=== PATIENT | female | born 1940 | race Caucasian/White ===

== ENCOUNTER 2019-12-03 16:30 | Outpatient (RCR) | payer MEDICARE, SELFPAY ==
[2019-11-17 12:03] VITALS: PULSE 60
--- NOTE | 2019-11-19 07:31 | PCCPR ---
Pt called 11/18, not feeling well with coughing fits; pt plans to return Mon 11/22
--- NOTE | 2019-12-09 09:48 | PCCPR ---
Program is temporarily suspended due to COVID outbreak.
--- NOTE | 2019-12-17 10:50 | PCCPR ---
Spoke with Yashira regarding temporary closure until January 13. Yashira is not doing any structured exercise at home. Informed her that we mailed a home exercise packet to her home as a guide she can use for exercise. We call again in one week.
--- NOTE | 2019-12-23 11:19 | PCCPR ---
Addendum entered by Jocelin Rosenberg RN 12/23/19 11:40: Yashira called back. States she has been having shoulder pain and can barely walk for 10 min. She called her MD and they got her in for an appt. They did an ultrasound and blood work and she states her troponin was elevated. They had her go get another trop drawn this am. They told her she may need another cath. She has been very busy running her to and from dialysis. Isn't able to do much activity due to the shoulder pain and becoming tired quickly. Will follow up with Yashira next week. Original Note: Left message-checking in on patient.
--- NOTE | 2019-12-30 14:28 | PCCPR ---
Check in completed with patient. Patient states she has not been able to do any exercise. She was having increased SOB, shoulder, & leg pain with any activity. She had an appt with MD and they did some testing. They told her she does have some fluid around her heart but nothing major. Did not think she needed any further testing. For the shoulder pain they told her to take nitro as needed. She also has been very busy taking care of her who is on dialysis and also has an infection is his foot. No other questions at this time. Will continue to follow weekly.
--- NOTE | 2020-01-06 13:47 | PCCPR ---
Weekly update call-No questions or concerns at this time.
--- NOTE | 2020-01-28 13:06 | PCCPR ---
Starting Bi-Weekly calls. Left message for patient.
--- NOTE | 2020-02-11 15:23 | PCCPR ---
Called Yashira spoke with her daughter she was on an important call however is still interested in the program. Let us know if she would like to talk with us about questions or concerns. We will call back in apx 2 weeks hopefully with a plan of how we will reopen safely.
--- NOTE | 2020-04-20 09:38 | PCCPR ---
Yashira had potential exposure from her grandson who went to college this week and tested positive. We encouraged her to self quarantine for 14 days before coming back. She is understanding and will return Saturday05/02/2020.
== END 2019-12-03 23:59 | disposition home or self-care (01) ==
LOC: ANHCPREHAB 16:30
PROVIDERS: Visit Provider Internal Medicine Cardiovascular Disease
DX: Z95.5 Presence of coronary angioplasty implant and graft (principal)
CPT/HCPCS: 93798

== ENCOUNTER 2020-04-28 13:24 | Outpatient (CLI) | payer MEDICARE, SELFPAY ==
--- NOTE | ~2020-04-28 | DEXA_ITS ---
Bone Density Report Name: Yashira Mccormack Age: 79 Sex: Female Ethnicity: White Date of : 1940 Indication: postmenopausal; parental hip fracture; height loss; prior fracture; hysterectomy; Referring Provider: PHYSICIAN NOT ON STAFF Study: Bone densitometry was performed. Exam Date: April 28, 2020 Accession number: [id number] Bone Density: Region BMD T-score Z-score Classification AP Spine (L1-L4) 0.827 -2.0 0.5 Osteopenia Femoral Neck (Left) 0.567 -2.5 -0.4 Osteoporosis Total Hip (Left) 0.687 -2.1 -0.2 Osteopenia Total Hip Bilateral Avg 0.700 -2.0 -0.1 Osteopenia Femoral Neck (Right) 0.542 -2.8 -0.6 Osteoporosis Total Hip (Right) 0.713 -1.9 0.0 Osteopenia World Health Organization criteria for BMD impression classify patients as: Normal (T-score at or above -1.0), Osteopenia (T-score between -1.0 and -2.5), or Osteoporosis (T-score at or below -2.5). 10-year Fracture Risk: FRAX not reported because: Some T-score for Spine Total or Hip Total or Femoral Neck at or below -2.5 Treated for osteoporosis Clinical Information Provided by Patient: Has had a low trauma fracture Parent has had a hip fracture Is being treated for osteoporosis Has used the following medications: Vitamin D Has the following medical conditions: Hysterectomy Patient maximum height was 67 Menopause Age: 42 No regular weight bearing exercise Drinks caffeinated beverages Onset of menses at age 16 Number of children 5 Impression: The patient has established osteoporosis, based on the Right Femoral Neck T-score and the existence of a prior fracture. The patient has risk factors, including: parental hip fracture, previous fracture. Discussion: It is important to ask patients whether they are taking their medications and to encourage continued and appropriate compliance with their osteoporosis therapies to reduce fracture risk. It is also important to review their risk factors and encourage appropriate calcium and vitamin D intakes, exercise, fall prevention and other lifestyle measures. Follow-Up: Consider a repeat BMD and Vertebral Fracture Assessment (VFA) exam in 2 years or sooner if medically necessary, to reassess this patient's status. Reported by: BENTLEY on 04/28/2020 2:03:00 PM. Reviewed, dictated and finalized at location ADorothy AGGARWAL
== END 2020-04-28 13:25 | disposition home or self-care (01) ==
LOC: ANHIMG 13:29
DX: Z78.0 Asymptomatic menopausal state (principal); M85.88 Other specified disorders of bone density and structure, other site; M81.0 Age-related osteoporosis without current pathological fracture; M85.852 Other specified disorders of bone density and structure, left thigh; M85.851 Other specified disorders of bone density and structure, right thigh
CPT/HCPCS: 77080

== ENCOUNTER 2020-06-08 10:30 | Outpatient (RCR) | payer MEDICARE, SELFPAY | END 2020-06-08 15:00 | disposition home or self-care (01) | LOC: ANHCPREHAB 10:30 | PROVIDERS: Visit Provider Internal Medicine Cardiovascular Disease | DX: Z95.5 Presence of coronary angioplasty implant and graft (principal) | CPT/HCPCS: 93798 ==

== ENCOUNTER 2021-12-23 15:25 | Emergency (ER) | payer MEDICARE, SELFPAY ==
--- NOTE | ~2021-12-23 | XR_ITS ---
EXAM: XR abdomen/kub 1V, XR lumbar spine 2-3V HISTORY: Lt sided LOW BACK PAIN; no injury; recent C-dif infection COMPARISON: None available FINDINGS: Lumbar spine: 5 nonrib-bearing lumbar-type vertebral bodies. Pedicles intact. Exaggerated lumbar lord osis. 3 mm retrolisthesis of L1 on L2 with mild disc space narrowing and marginal osteophytosis. Mode rate disc space narrowing with mild marginal osteophytosis and vacuum phenomenon at L5-S1. Mild multi level facet arthropathy. Abdomen: Atherosclerotic aortic calcifications, without evident aneurysm. Mild hepatomegaly. Normal b owel gas pattern. Cholecystectomy clips. Degenerative changes in the bilateral SI joints and hips as well as the pubic symphysis. IMPRESSION: No obstruction or ileus. No acute fracture or traumatic malalignment detected in the lumbar spine. Gr sandee 1 retrolisthesis of L1 on L2, with mild associated degenerative disc disease. Severe degenerative disc disease at L5-S1. Reviewed, dictated and finalized at location K. IMPRESSION: No obstruction or ileus. No acute fracture or traumatic malalignment detected i n the lumbar spine. Grade 1 retrolisthesis of L1 on L2, with mild associated de generative disc disease. Severe degenerative disc disease at L5-S1.
[2021-12-23 15:41] VITALS: BP 94/67; PULSE 73; RESP 12; TEMP 36.8; O2SAT 100
--- NOTE | 2021-12-23 16:34 | ED.GENADULT ---
HPI - General Adult General Chief complaint: Back Pain/Injury Stated complaint: BACK PAIN Source: patient Mode of arrival: ambulatory Limitations: no limitations History of Present Illness HPI narrative: Patient presents for evaluation of left lower back pain. Symptom onset several weeks ago. She was seen at [facility] in the ER on 12/12/21 and was admitted until 12/14/21 for c diff. She had been experiencing diarrhea for several weeks prior to going to the emergency department. During ER stay she had a CT with IV contrast that showed urothelial thickening consistent with pyelonephritis and a 7 x 12 mm nodule in mesentary. I reviewed urinalysis from admission and it did not appear infected. She was treated with vancomycin and was discharged with oral vancomycin which she has been taking as directed. Her diarrhea has resolved. Before she was discharged she informed the treating provider that her lower back pain was worsening. They ordered a CT abd pelvis without contrast. The urothelial thickening had resolved and there was no kidney stone visualized. No fever, chills, vomiting or urinary symptoms. She states that the pain in her lower back has caused her to feel nauseated. She states pain is a constant dull ache however she has intermittent periods of time where it catches shooting back across her back. She rates the pain 100 on scale of 1-10. Movement seems to make the pain worse. She denies any precipitating injury. She is taking prolia injections for osteoporosis. Related Data Home Medications Medication Instructions Recorded Confirmed amlodipine 5 mg PO DAILY 11/17/19 12/23/21 aspirin [Adult Low Dose Aspirin] 81 mg PO DAILY 11/17/19 12/23/21 ugmipwnctr-rscywnf-pdytzvev 1 cap PO Q4-6H PRN 11/17/19 12/23/21 [Fiorinal] carvedilol 25 mg PO BID 11/17/19 12/23/21 cholecalciferol (vitamin D3) 50 mcg PO DAILY 11/17/19 12/23/21 [Vitamin D3] clopidogrel [Plavix] 75 mg PO DAILY 11/17/19 12/23/21 evolocumab [Repatha SureClick] See Rx Instructions .ROUTE .COMPLEX 11/17/19 12/23/21 ezetimibe [Zetia] 10 mg PO DAILY 11/17/19 12/23/21 levothyroxine 75 mcg PO DAILY 11/17/19 12/23/21 multivit with min-folic acid 1 mg PO DAILY 11/17/19 12/23/21 [Adult One Daily Multivitamin] trazodone 50 - 100 mg PO HS 11/17/19 12/23/21 Lactobacill 46-B.animal-inulin 1 cap PO DAILY 12/23/21 12/23/21 [Probiotic-10 (with inulin)] cholestyramine (with sugar) 1 ea PO DAILY 12/23/21 12/23/21 [Questran] escitalopram oxalate 10 mg PO DAILY 12/23/21 12/23/21 melatonin 5 mg PO HS PRN 12/23/21 12/23/21 nitroglycerin 0.4 mg SUBLINGUAL Q5M PRN 12/23/21 12/23/21 pantoprazole 40 mg PO QAM 12/23/21 12/23/21 vancomycin 125 mg PO DIRECTED 12/23/21 12/23/21 Allergies Allergy/AdvReac Type Severity Reaction Status Date / Time adhesive tape Allergy Rash Verified 12/23/21 15:36 codeine Allergy Rash Verified 12/23/21 15:36 morphine Allergy Rash Verified 12/23/21 15:36 Penicillins Allergy Other Verified 12/23/21 15:36 Bmapdil-CTS-QsY Reductase AdvReac Swelling Verified 12/23/21 15:36 Inhibitor Review of Systems Review of Systems: CONSTITUTIONAL: Denies fever, chills, or sweats. EYES: Denies visual changes, redness, or discharge. ENT: Denies rhinorrhea, congestion, sore throat, or otalgia. CARDIOVASCULAR: Denies chest pain, palpitations, or edema. RESPIRATORY: Denies cough or dyspnea. GASTROINTESTINAL: Denies abdominal pain, nausea, vomiting, or diarrhea. GENITOURINARY: Denies dysuria or hematuria. SKIN: Denies rash or itching. MUSCULOSKELETAL: Reports left lower back pain. Denies joint pain, or myalgia. NEUROLOGIC: Denies headache, numbness, dizziness, or weakness. PSYCHIATRIC: Denies anxiety or depression. 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
== END 2021-12-23 17:28 | disposition home or self-care (01) ==
PROVIDERS: Emergency Provider Nurse Practitioner; PCP Family Medicine
DX: M51.36 Other intervertebral disc degeneration, lumbar region (principal); I12.9 Hypertensive chronic kidney disease with stage 1 through stage 4 chronic kidney disease, or unspecified chronic kidney disease; N18.9 Chronic kidney disease, unspecified; R78.5 Finding of other psychotropic drug in blood; M81.0 Age-related osteoporosis without current pathological fracture; Z79.82 Long term (current) use of aspirin; Z86.19 Personal history of other infectious and parasitic diseases
CPT/HCPCS: 72100; 74018; 81003; 99214; G0463

== ENCOUNTER 2022-07-23 15:38 | Emergency (ER) | payer MEDICARE, SELFPAY ==
--- NOTE | ~2022-07-23 | XR_ITS ---
EXAMINATION: XR chest 2V Exam Date/Time: 07/23/2022 16:02 [employer]AN [employer] HISTORY: cough, congestion one week Comparison: None available. RESULT: Lines, tubes, and devices: Cholecystectomy clips. Lungs and pleura: Senescent and emphysematous change. Calcified right lower lung granuloma. Cardiomediastinal silhouette: Mild cardiomegaly. Dilated aortic root. Other: No acute osseous or upper abdominal finding. Osteopenia. Thoracic scoliosis. IMPRESSION: No acute cardiopulmonary process. Reviewed, dictated and finalized at location K. [employer]ER
[2022-07-23 15:48] VITALS: BP 140/66; PULSE 67; RESP 16; TEMP 36.9; O2SAT 99
--- NOTE | 2022-07-23 15:50 | ED.URI ---
HPI - URI/Sore Throat General Chief Complaint: Upper Respiratory Infection Stated Complaint: cough, no taste/smell Time Seen by Provider: 07/23/22 15:50 Source: patient and RN notes reviewed Mode of arrival: ambulatory Limitations: no limitations History of Present Illness HPI Narrative: 81-year-old female presented for complaints of sinus pressure and congestion, headache, and bilateral ear pain worsening over the past week. She endorses frequent cough at times productive of clear/green/blood tinged sputum, and rib pain with coughing. She endorses decreased taste and smell. She has had 2 negative COVID tests at home. She did get a flu vaccine this season. She has been taking owpc-gvt-vffdqcu medicines Flonase, guaifenesin, Benadryl, cetirizine, Tylenol for symptoms. She started acyclovir for fever blister. She denies shortness of breath, wheezing, nausea, vomiting, diarrhea, fevers or chills. MD elicited complaint: cough Related Data Home Medications Medication Instructions Recorded Confirmed amlodipine 5 mg tablet 5 mg PO DAILY 11/17/19 12/23/21 aspirin 81 mg tablet,delayed 81 mg PO DAILY 11/17/19 12/23/21 release (Adult Low Dose Aspirin) tmhnjrgfvl-ykhpglk-hktwimbj 50 1 cap PO Q4-6H PRN Pain 11/17/19 12/23/21 mg-325 mg-40 mg capsule (Fiorinal) carvedilol 25 mg tablet 25 mg PO BID 11/17/19 12/23/21 cholecalciferol (vitamin D3) 50 50 mcg PO DAILY 11/17/19 12/23/21 mcg (2,000 unit) capsule (Vitamin D3) clopidogrel 75 mg tablet (Plavix) 75 mg PO DAILY 11/17/19 12/23/21 evolocumab 140 mg/mL subcutaneous See Rx Instructions .Route .COMPLEX 11/17/19 12/23/21 pen injector (Cholo Le) ezetimibe 10 mg tablet (Zetia) 10 mg PO DAILY 11/17/19 12/23/21 levothyroxine 75 mcg tablet 75 mcg PO DAILY 11/17/19 12/23/21 multivitamin with minerals-folic 1 mg PO DAILY 11/17/19 12/23/21 acid 0.4 mg tablet (Adult One Daily Multivitamin) trazodone 50 mg tablet 50 - 100 mg PO HS 11/17/19 12/23/21 Lactobacillus no.46-B. 1 cap PO DAILY 12/23/21 12/23/21 animalis-inulin 10 billion cell-100 mg capsule (Probiotic-10 (with inulin)) cholestyramine (with sugar) 4 gram 1 ea PO DAILY 12/23/21 12/23/21 oral powder (Questran) escitalopram oxalate 10 mg tablet 10 mg PO DAILY 12/23/21 12/23/21 melatonin 5 mg tablet 5 mg PO HS PRN Sleep 12/23/21 12/23/21 nitroglycerin 0.4 mg sublingual 0.4 mg sublingual Q5M PRN Chest 12/23/21 12/23/21 tablet Pain pantoprazole 40 mg tablet,delayed 40 mg PO QAM 12/23/21 12/23/21 release Allergies Allergy/AdvReac Type Severity Reaction Status Date / Time adhesive tape Allergy Rash Verified 12/23/21 15:36 codeine Allergy Rash Verified 12/23/21 15:36 morphine Allergy Rash Verified 12/23/21 15:36 Penicillins Allergy Other Verified 12/23/21 15:36 Sewdnlx-ENZ-YzK Reductase AdvReac Swelling Verified 12/23/21 15:36 Inhibitor Review of Systems Review of Systems: CONSTITUTIONAL: Denies malaise, chills, sweats, fever EYES: Denies visual changes, redness, or discharge ENT: Reports rhinorrhea, congestion, sinus pain CARDIOVASCULAR: Denies chest pain, palpitations, edema RESPIRATORY: Reports cough, post nasal drainage. Denies dyspnea GASTROINTESTINAL: Denies abdominal pain, nausea, vomiting, diarrhea MUSCULOSKELETAL: Denies myalgia [facility] Past Medical History Medical History Chronic kidney disease Chronic kidney disease Hyperlipidemia Hypertension Osteoporosis Surgical History Surgical History History of appendectomy History of cholecystectomy History of tonsillectomy and adenoidectomy Family History Family History Father Acute myocardial infarction Hypertension Father Coronary artery disease involving coronary bypass graft Peripheral artery disease Coronary artery disease Mother Enlarged hea
== END 2022-07-23 16:47 | disposition home or self-care (01) ==
PROVIDERS: Emergency Provider Nurse Practitioner Family
DX: J06.9 Acute upper respiratory infection, unspecified (principal); I12.9 Hypertensive chronic kidney disease with stage 1 through stage 4 chronic kidney disease, or unspecified chronic kidney disease; N18.9 Chronic kidney disease, unspecified; E78.5 Hyperlipidemia, unspecified; M81.0 Age-related osteoporosis without current pathological fracture; Z79.82 Long term (current) use of aspirin
CPT/HCPCS: 71046; 99213; G0463

== ENCOUNTER 2023-02-04 15:28 | Emergency (ER) | payer MEDICARE, SELFPAY ==
[2023-02-04 15:38] VITALS: BP 145/73; PULSE 80; RESP 16; TEMP 36.7; O2SAT 100
--- NOTE | 2023-02-04 15:45 | ED.URI ---
HPI - URI/Sore Throat General Chief Complaint: Upper Respiratory Infection Stated Complaint: sore throat,headache,congestion,ear pain Time Seen by Provider: 02/04/23 15:46 Source: patient and RN notes reviewed Mode of arrival: ambulatory Limitations: no limitations History of Present Illness HPI Narrative: 82-year-old female presented for complaint of sinus pressure and congestion, sore throat, bilateral ear pressure for about 3 days. Endorses mild nonproductive cough and malaise. She denies shortness of breath, wheezing, vomiting, fevers or chills. She has taken Benadryl occasionally since the onset of symptoms. She denies known sick contacts. MD elicited complaint: cough Related Data Home Medications Medication Instructions Recorded Confirmed amlodipine 5 mg tablet 5 mg PO DAILY 11/17/19 02/04/23 aspirin 81 mg tablet,delayed 81 mg PO DAILY 11/17/19 02/04/23 release (Adult Low Dose Aspirin) carvedilol 25 mg tablet 25 mg PO BID 11/17/19 02/04/23 cholecalciferol (vitamin D3) 50 50 mcg PO DAILY 11/17/19 02/04/23 mcg (2,000 unit) capsule (Vitamin D3) evolocumab 140 mg/mL subcutaneous See Rx Instructions .Route .COMPLEX 11/17/19 02/04/23 pen injector (Cholo Le) ezetimibe 10 mg tablet (Zetia) 10 mg PO DAILY 11/17/19 02/04/23 levothyroxine 75 mcg tablet 75 mcg PO DAILY 11/17/19 02/04/23 trazodone 50 mg tablet 50 - 100 mg PO HS 11/17/19 02/04/23 melatonin 5 mg tablet 5 mg PO HS PRN Sleep 12/23/21 02/04/23 nitroglycerin 0.4 mg sublingual 0.4 mg sublingual Q5M PRN Chest 12/23/21 02/04/23 tablet Pain pantoprazole 40 mg tablet,delayed 40 mg PO QAM 12/23/21 02/04/23 release diphenhydramine HCl 25 mg tablet 25 mg PO HS PRN Allergic Symptoms 02/04/23 02/04/23 fluoxetine 10 mg capsule (Prozac) 10 mg PO DAILY 02/04/23 02/04/23 sgphcx-tzncmmdl-gchvhcy 1 cap PO TID 02/04/23 02/04/23 25,000-79,000-105,000 unit capsule,delayed rel (Zenpep) simethicone 80 mg chewable tablet 80 mg PO DAILY PRN Digestion 02/04/23 02/04/23 Allergies Allergy/AdvReac Type Severity Reaction Status Date / Time adhesive tape Allergy Rash Verified 02/04/23 15:41 codeine Allergy Rash Verified 02/04/23 15:41 morphine Allergy Rash Verified 02/04/23 15:41 Penicillins Allergy Other Verified 02/04/23 15:41 Olfudez-WMQ-SrE Reductase AdvReac Swelling Verified 02/04/23 15:41 Inhibitor Review of Systems Review of Systems: CONSTITUTIONAL: Denies chills, sweats, fever EYES: Denies visual changes, redness, or discharge ENT: Reports rhinorrhea, congestion, sinus pain, otalgia, sore throat CARDIOVASCULAR: Denies chest pain, palpitations, edema RESPIRATORY: Reports cough, post nasal drainage. Denies dyspnea GASTROINTESTINAL: Denies abdominal pain, nausea, vomiting, diarrhea SKIN: Denies rash or itching MUSCULOSKELETAL: Denies myalgia PMFSH Past Medical History Medical History Chronic kidney disease Chronic kidney disease Hyperlipidemia Hypertension Osteoporosis Surgical History Surgical History History of appendectomy History of cholecystectomy History of tonsillectomy and adenoidectomy Family History Family History Father Acute myocardial infarction Hypertension Father Coronary artery disease involving coronary bypass graft Peripheral artery disease Coronary artery disease Mother Enlarged heart Hypertension Sibling Meningitis spinal Coronary artery disease Social History Social History Smoking status: Never smoker Alcohol intake: never Substance use: never Living arrangements: alone Gender identity (if verbalized by the patient): Female Sexual Orientation (if Verbalized by the Patient): Straight or Heterosexual Spiritual care concerns: No Exam Narrative:
== END 2023-02-04 16:35 | disposition home or self-care (01) ==
PROVIDERS: Emergency Provider Nurse Practitioner Family; PCP Family Medicine
DX: B34.9 Viral infection, unspecified (principal); Z20.822 Contact with and (suspected) exposure to COVID-19; I12.9 Hypertensive chronic kidney disease with stage 1 through stage 4 chronic kidney disease, or unspecified chronic kidney disease; N18.9 Chronic kidney disease, unspecified; E78.5 Hyperlipidemia, unspecified; M81.0 Age-related osteoporosis without current pathological fracture; Z79.82 Long term (current) use of aspirin
CPT/HCPCS: 87081; 87426; 87880; 99213; C9803; G0463

== ENCOUNTER → 2023-06-04 15:41 | Outpatient (CLI) | payer MEDICARE, SELFPAY ==
--- NOTE | ~2023-06-04 | XR_ITS ---
XR abdomen/kub 1V DATE: 06/04/2023 16:08 INDICATION: Constipation TECHNIQUE: AP views COMPARISON: December 23, 2021 KUB FINDINGS: Surgical clips, right upper quadrant, consistent with cholecystectomy. The psoas shadows are intact. No visceromegaly is evident. There is no evidence of bowel obstruction. No significant abnormal of fecal material is noted in the colon. Osteopenia. The lung bases appear clear. IMPRESSION: No evidence of bowel obstruction or constipation radiographically Status post cholecystectomy Reviewed, dictated and finalized at Location A. Reviewed, dictated and finalized at location A.
== END ==
DX: K59.00 Constipation, unspecified (principal); Z90.49 Acquired absence of other specified parts of digestive tract
CPT/HCPCS: 74018

== ENCOUNTER 2024-01-13 13:30 | Outpatient (RCR) | payer MEDICARE, SELFPAY ==
--- NOTE | 2023-12-16 14:19 | OPREHPOC ---
Outpatient Therapy Plan of Care This is a Multidisciplinary Plan of Care that may contain components documented by all disciplines (PT, OT, and ST.) PT Problem 1 PT Problem #1 Knowledge Deficit PT Goal 1 Goal 1. Patient will perform independent HEP Target Visit 2 PT Problem 2 PT Problem #2 Pain PT Goal 1 Goal 1. Patient will report abdominal pain 3/10 at the highest 2. No pain with pelvic exam Target Visit 5 PT Problem 3 PT Problem #3 Impaired Strength PT Goal 1 Goal 1. Improve pelvic floor strength to 3/5 to decrease incontinence 2. Improve pelvic floor endurance to 10 seconds to decrease incontinence Target Visit 5 PT Problem 4 PT Problem #4 Impaired Functional ADLs PT Goal 1 Goal 1. Patient will report no more than 1 instance of urinary incontinence per week 2. Patient will report no more than 1 instance of fecal incontinence per week Target Visit 5
--- NOTE | 2023-12-16 14:19 | PTOPEVAL1 ---
Assessment and note entered by Kate Cedillo DPT Evaluation Information Assessment Status Evaluation Subjective Information Pt reports she has had issues with diverticulitis since 2020 and has fecal incontinence. Difficulty going out in the community and needs to take extra clothes with her. Wears pads all the time. Also reports urinary mixed incontinence. Voids anywhere from 3-10 times a day, 1-2 times at night. No pain with urination. Can hold urge at times for a few minutes. Volume varies, usually a few drops but is sometimes more. BM frequency is also variable but typically more than once a day. Can hold fecal hold up to 10 minutes max. Denies history of pelvic pain but does have abdominal pain 10/10 highest and lowest 0/10. Pt has been 5 times, 5 vaginal deliveries with some tearing/stitching. Previous hemorrhoidectomy 20 years ago, partial hysterectomy in 's and reconstructive surgery in early 1999's. Has been diagnosed with IBS. Drinks 1 cup of coffee or tea a day and some orange soda, water, but states not enough water. Has cut back on dairy and red meat. States her eating habits have changed since her and are not good . Patient goal: avoid wearing pads and make it to the bathroom Return to MD is scheduled but unsure when. Reported Pain Level Pain Score 0: Self Report Assessment PT Clinical Summary The patient is presenting to skilled therapy with a history of fecal incontinence, diverticulitis, and urinary incontinence. She presents with significantly decreased pelvic floor strength and endurance as well as overall decreased hip and core strength. She will highly benefit from therapy to address these impairments in order to reduce incontinence and improve function. Plan of Care Interventions Manual Therapy,Neuro Re-education,Patient/ Caregiver Education,Therapeutic Activities, Therapeutic Exercise PT Services Indicated Yes Treatment Frequency and 1 time a week for 5 visits Duration These treatments will address the objective and functional deficits as defined above. The patient will be advanced safely and appropriately in order for the patient to progress towards his/her prior level of function. Additional exercises will be introduced and as well as a comprehensive home exercise program upon di
--- NOTE | 2024-01-13 14:08 | OPREHPOC ---
Outpatient Therapy Plan of Care This is a Multidisciplinary Plan of Care that may contain components documented by all disciplines (PT, OT, and ST.) PT Problem 1 PT Problem #1 Knowledge Deficit PT Goal 1 Goal 1. Patient will perform independent HEP Target Visit 2 Progress Partially Met PT Problem 2 PT Problem #2 Pain PT Goal 1 Goal 1. Patient will report abdominal pain 3/10 at the highest 2. No pain with pelvic exam Target Visit 5 Progress Not Met PT Problem 3 PT Problem #3 Impaired Strength PT Goal 1 Goal 1. Improve pelvic floor strength to 3/5 to decrease incontinence 2. Improve pelvic floor endurance to 10 seconds to decrease incontinence Target Visit 5 Progress Not Met PT Problem 4 PT Problem #4 Impaired Functional ADLs PT Goal 1 Goal 1. Patient will report no more than 1 instance of urinary incontinence per week 2. Patient will report no more than 1 instance of fecal incontinence per week Target Visit 5 Progress Met
--- NOTE | 2024-01-13 14:09 | PTOPDC ---
Assessment and note entered by Kate Cedillo DPT Evaluation Information Assessment Status Discharge Subjective Information Pt reports she is feeling about the same since starting therapy, no incontinence in the last week . Reports a sense of urgency at times but not all the time. BM at least once a day over the last week. Voiding 6 times a day, multiple times at night. Reported Pain Level Pain Score 0: Self Report Assessment PT Clinical Summary The patient reports feeling the same since starting therapy although she also reports no urinary or fecal incontinence in the last week and reports she has done her exercises inconsistently . She did not consent to internal assessment this visit to update pelvic strength measures. She does demonstrate improved hip strength. Will discharge this visit per patient request. She has been educated to follow up with MD and/or PT as needed. Plan of Care PT Services Indicated No
== END 2024-01-13 14:35 | disposition home or self-care (01) ==
LOC: ANHGOSHPT 13:30
DX: R15.9 Full incontinence of feces (principal)
CPT/HCPCS: 97112; 97161; 97530

== ENCOUNTER 2024-02-05 14:49 | Outpatient (CLI) | payer MEDICARE, SELFPAY ==
--- NOTE | ~2024-02-05 | CT_ITS ---
EXAMINATION: CTA chest PE protocol DATE: 02/05/2024 16:27 INDICATION: Elevated d-dimer. TECHNIQUE: Computed tomography angiography (CTA) of the chest was performed with 120 mL Omnipaque-350 intravenous contrast timed to evaluate the pulmonary arteries. Coronal maximum intensity projection 3D-reconstructions were created by the technologist. Automated exposure control and iterative reconst ruction technique were employed. The dose-length product was 630.39 mGy-cm. COMPARISON: None. FINDINGS: There is mild scarring at the lung apices. Calcified right lung nodules and calcified right hilar lymph nodes are consistent with old granulomatous disease. No pleural effusion. The heart size is normal. There are coronary artery calcifications. There is a small pericardial effusion. There is no pulmonary embolus. The central pulmonary arteries are enlarged, consistent with pulmonary arteria l hypertension. There is cortical thinning in the kidneys. There are changes of cholecystectomy. Ther e is a small sliding hernia. There is severe cervical spondylosis, mild thoracic spondylosis, and sev ere lumbar spondylosis. IMPRESSION: 1. No pulmonary embolus. 2. Small pericardial effusion. Reviewed, dictated and finalized at location A.
--- NOTE | ~2024-02-05 | US_ITS ---
EXAMINATION: US venous doppler [facility] DATE: 02/05/2024 15:36 INDICATION: Congestion, hoarseness and sore throat. Possible upper respiratory tract infection but wi th elevated d-dimer. TECHNIQUE: Grayscale ultrasound images without and with compression and Doppler ultrasound images of the bilateral lower extremity veins were obtained. COMPARISON: None. FINDINGS: The visualized portions of right common femoral vein, profunda (deep) femoral vein, femoral vein, pop liteal vein, posterior tibial veins, peroneal veins, gastrocnemius vein and greater saphenous vein ou tflow are patent. The visualized portions of left common femoral vein, profunda femoral vein, femoral vein, popliteal v ein, posterior tibial veins, peroneal veins, gastrocnemius vein and greater saphenous vein outflow ar e patent. IMPRESSION: 1. No deep venous thrombosis in either lower limb. Reviewed, dictated and finalized at location A.
[2024-02-05 16:02] LABS: Estimated Glomerular Filt Rate 33
== END 2024-02-05 14:50 | disposition home or self-care (01) ==
LOC: ANHIMG 14:50
PROVIDERS: Visit Provider Internal Medicine Cardiovascular Disease
DX: R79.89 Other specified abnormal findings of blood chemistry (principal); J90 Pleural effusion, not elsewhere classified
CPT/HCPCS: 71275; 93970; Q9967